=== PATIENT | female | born 1955 | race Caucasian/White ===

== ENCOUNTER 2025-01-21 19:00 | Emergency (ER) | payer MEDICARE ==
[~2025-01-21] VITALS: Ht 160 cm; Wt 90.7 kg
[2025-01-21] MEDS ORDERED: IBUPROFEN 600 MG/TAB PO ONE (21:10)
[2025-01-21] MEDS ORDERED: Acetaminophen 300 MG/Codeine 30 MG/COMBO PO ONE (21:10)
[2025-01-21] MEDS ORDERED: NEOMYCIN-BACITRACIN-POLYMYXIN 0.5 GM/PAK PAK TOP ONE (21:15)
[2025-01-21] MEDS ORDERED: TRAMADOL HYDROC50 M1 PO (21:17)
[2025-01-21] MEDS ORDERED: MOTRIN800 MG PO (21:17)
[2025-01-21 21:58] VITALS: BP 130/62
== END 2025-01-21 21:58 | disposition home or self-care (01) ==
LOC: ED 19:00
DX: S52.602A Unspecified fracture of lower end of left ulna, initial encounter for closed fracture (principal); S50.312A Abrasion of left elbow, initial encounter; S60.415A Abrasion of left ring finger, initial encounter; S60.417A Abrasion of left little finger, initial encounter; S80.212A Abrasion, left knee, initial encounter; I10 Essential (primary) hypertension; E11.9 Type 2 diabetes mellitus without complications; I25.2 Old myocardial infarction; V28.01XA Electric (assisted) bicycle driver injured in noncollision transport accident in nontraffic accident, initial encounter; Y92.410 Unspecified street and highway as the place of occurrence of the external cause; Y93.55 Activity, bike riding